=== PATIENT | male | born 1950 | race Caucasian/White ===

== ENCOUNTER 2022-07-17 10:03 | Inpatient (IN) | payer MEDICARE ==
[2022-07-11 13:59] LABS: BASOPHILS # (AUTO) 0.1 (0.0-0.1); BASOPHILS % 1.2 % (0.0-1.0); EOSINOPHILS # (AUTO) 0.2 (0.0-0.4); EOSINOPHILS % 3.2 % (0.0-6.0); HEMOGLOBIN 15.8 g/dL (14.0-18.0); LYMPHOCYTES # (AUTO) 1.3 (1.0-3.2); LYMPHOCYTES % 17.6 % (18.0-39.1); MEAN CORPUSCULAR HEMOGLOBIN 31.3 pg (28-32); MEAN CORPUSCULAR HGB CONC 32.2 g/dL (31-35); MONOCYTES % 13.9 % (4.4-11.3); NEUTROPHILS # (AUTO) 4.6 (2.1-6.9); NEUTROPHILS % 63.3 % (38.7-80.0); PLATELET COUNT 218 x10e3/uL (140-360); RED BLOOD COUNT 5.05 x10e6/uL (4.3-5.7); RED CELL DISTRIBUTION WIDTH 12.6 % (11.7-14.4)
[2022-07-11 14:17] LABS: ANION GAP 11.6 mmol/L (8-16); CALCIUM 9.5 mg/dL (8.4-10.2); CREATININE, SERUM 1.4 mg/dL (0.72-1.25); POTASSIUM 3.6 mmol/L (3.5-5.1)
[~2022-07-17] VITALS: Ht 190.5 cm; Wt 101.2 kg
[~2022-07-17 10:03] MED LIST: AMLODIPINE BESYL5 MG PO; FLOMAX0.4 MG PO; LISINOPRIL-HCT1 EAC1 PO; METHIMAZOLE10 MG PO
[2022-07-17] MEDS ORDERED: CLINDAMYCIN 600MG / 50ML 50 ML IV ONE (10:42)
[2022-07-17] MEDS ORDERED: GENTAMICIN 80MG/NS 100 ML 200 ML IV ONE (10:42)
[2022-07-17] MEDS ORDERED: PIPERACILLIN/TAZOBACTAM 3.375 GM VIAL ONE (10:43)
[2022-07-17] MEDS ORDERED: BACITRACIN ZINC 15 GM OINT ONE (11:59)
[2022-07-17] MEDS ORDERED: GENTAMICIN SULFATE 40 MG/ML 2 ML VIAL ONE ×2 (11:59→13:10)
[2022-07-17] MEDS ORDERED: Vancomycin IV 500 MG ONE ×2 (12:00→13:10)
[2022-07-17] MEDS ORDERED: SEVOFLURANE INHAL SOLN 250 ML PEN BTL ONE (13:11)
[2022-07-17] MEDS ORDERED: EPHEDRINE SULFATE INJ 50 MG/ML VIAL ONE (13:11)
[2022-07-17] MEDS ORDERED: ONDANSETRON HCL INJ 2MG/ML 2ML 2 MG/ML VIAL ONE (13:11)
[2022-07-17] MEDS ORDERED: PROPOFOL IV EMULSION 10 MG/ML 20 ML VIAL ONE (13:11)
[2022-07-17] MEDS ORDERED: PHENYLEPHRINE HCL 1% 10 MG/ML VIAL ONE (13:11)
[2022-07-17] MEDS ORDERED: LIDOCAINE HCL 2% LOCAL INJ 5 ML SDV VIAL INJ ONE (13:11)
[2022-07-17] MEDS ORDERED: POVIDONE IODINE 0.05% 0.05 % ML PO ONE (13:11)
[2022-07-17] MEDS ORDERED: DEXAMETHASONE SOD PHOS INJ 4 MG/ML SDV ONE (13:11)
[2022-07-17] MEDS ORDERED: TRAMADOL HCL 50 MG TAB PO PRN (13:15)
[2022-07-17] MEDS ORDERED: SODIUM CHLORIDE 0.9% 1000ML 1,000 ML IV SCH (13:15)
[2022-07-17] MEDS ORDERED: ONDANSETRON HCL INJ 2MG/ML 2ML 2 MG/ML VIAL IV PRN (13:15)
[2022-07-17] MEDS ORDERED: DIPHENHYDRAMINE HCL 25 MG CAP PO PRN (13:15)
[2022-07-17] MEDS ORDERED: FENTANYL CITRATE/PF 100MCG/2 ML INJ ONE ×2 (13:32→15:30)
[2022-07-17] MEDS ORDERED: MIDAZOLAM HCL 2 MG/2 ML VIAL ONE (13:32)
[2022-07-17 15:51] VITALS: BP 100/67
[2022-07-17 16:35] VITALS: BP 106/51
[2022-07-17] MEDS: DOCUSATE SODIUM 100 MG CAP PO SCH (17:25)
[2022-07-17] MEDS ORDERED: ACETAMINOPHEN 1000 MG/100 ML IV PRN (18:00)
[2022-07-17] MEDS: Clindamycin INJ 300 MG/50 ML 50 ML IV SCH (19:49)
[2022-07-17 20:00] VITALS: BP 115/73
[2022-07-17] MEDS: HYDROCODONE/APAP 10MG-325MG TAB PO PRN (20:03)
[2022-07-17 21:00] VITALS: BP 115/73
[2022-07-18] VITALS (7 sets, daily range): BP systolic 105–126; BP diastolic 66–83
[2022-07-18] MEDS: HYDROCODONE/APAP 10MG-325MG TAB PO PRN ×4 (01:06→17:10)
[2022-07-18] MEDS: Clindamycin INJ 300 MG/50 ML 50 ML IV SCH ×3 (04:57→20:01)
[2022-07-18 05:21] LABS: BASOPHILS % 0.2 % (0.0-1.0); EOSINOPHILS % 0.1 % (0.0-6.0); HEMATOCRIT 42.7 % (38.2-49.6); HEMOGLOBIN 14.7 g/dL (14.0-18.0); LYMPHOCYTES # (AUTO) 0.9 (1.0-3.2); LYMPHOCYTES % 5.4 % (18.0-39.1); MEAN CORPUSCULAR HEMOGLOBIN 31.4 pg (28-32); MEAN CORPUSCULAR HGB CONC 34.4 g/dL (31-35); MEAN CORPUSCULAR VOLUME 91.2 fL (81-99); MONOCYTES # (AUTO) 1.6 (0.2-0.8); MONOCYTES % 9.9 % (4.4-11.3); NEUTROPHILS # (AUTO) 13.7 (2.1-6.9); NEUTROPHILS % 83.7 % (38.7-80.0); PLATELET COUNT 225 x10e3/uL (140-360); RED BLOOD COUNT 4.68 x10e6/uL (4.3-5.7); RED CELL DISTRIBUTION WIDTH 12.6 % (11.7-14.4)
[2022-07-18 05:50] LABS: ANION GAP 14.7 mmol/L (8-16); CALCIUM 8.8 mg/dL (8.4-10.2); CREATININE, SERUM 1.43 mg/dL (0.72-1.25); POTASSIUM 3.7 mmol/L (3.5-5.1)
[2022-07-18] MEDS: SODIUM CHLORIDE 0.9% 1000ML 1,000 ML IV SCH ×2 (06:25→20:01)
[2022-07-18] MEDS ORDERED: ONDANSETRON HCL 4 MG ORAL DISINTEGRATING TAB PO PRN (07:15)
[2022-07-18] MEDS: DOCUSATE SODIUM 100 MG CAP PO SCH ×2 (08:54→16:57)
[2022-07-18] MEDS ORDERED: TAMSULOSIN HCL 0.4 MG CAP PO SCH ×3 (09:00→21:00)
[2022-07-18] MEDS: METHIMAZOLE 5 MG TAB PO SCH ×2 (09:01→16:57)
[2022-07-18] MEDS: AMLODIPINE BESYLATE 5 MG TAB PO SCH (09:02)
[2022-07-19] VITALS: BP 119/72
[2022-07-19 04:00] VITALS: BP 131/69
[2022-07-19] MEDS: Clindamycin INJ 300 MG/50 ML 50 ML IV SCH ×2 (04:48→13:00)
[2022-07-19 05:03] LABS: BASOPHILS # (AUTO) 0.1 (0.0-0.1); BASOPHILS % 0.7 % (0.0-1.0); EOSINOPHILS # (AUTO) 0.1 (0.0-0.4); EOSINOPHILS % 1.5 % (0.0-6.0); HEMATOCRIT 42.8 % (38.2-49.6); HEMOGLOBIN 14.6 g/dL (14.0-18.0); LYMPHOCYTES # (AUTO) 0.8 (1.0-3.2); LYMPHOCYTES % 8.8 % (18.0-39.1); MEAN CORPUSCULAR HEMOGLOBIN 31.8 pg (28-32); MEAN CORPUSCULAR HGB CONC 34.1 g/dL (31-35); MEAN CORPUSCULAR VOLUME 93.2 fL (81-99); MONOCYTES # (AUTO) 1.2 (0.2-0.8); MONOCYTES % 13.6 % (4.4-11.3); NEUTROPHILS # (AUTO) 6.5 (2.1-6.9); NEUTROPHILS % 74.5 % (38.7-80.0); PLATELET COUNT 178 x10e3/uL (140-360); RED BLOOD COUNT 4.59 x10e6/uL (4.3-5.7); RED CELL DISTRIBUTION WIDTH 13.1 % (11.7-14.4)
[2022-07-19 05:32] LABS: ANION GAP 12.1 mmol/L (8-16); CALCIUM 9.1 mg/dL (8.4-10.2); CREATININE, SERUM 1.34 mg/dL (0.72-1.25); POTASSIUM 4.1 mmol/L (3.5-5.1)
[2022-07-19 08:19] VITALS: BP 114/70
[2022-07-19 09:00] VITALS: BP 114/70
[2022-07-19] MEDS: DOCUSATE SODIUM 100 MG CAP PO SCH (09:00)
[2022-07-19] MEDS: AMLODIPINE BESYLATE 5 MG TAB PO SCH (11:18)
[2022-07-19] MEDS: METHIMAZOLE 5 MG TAB PO SCH (11:18)
[2022-07-19] MEDS: SODIUM CHLORIDE 0.9% 1000ML 1,000 ML IV SCH (11:19)
[2022-07-19] MEDS: HYDROCODONE/APAP 10MG-325MG TAB PO PRN (11:21)
[2022-07-19 12:56] VITALS: BP 131/77
[2022-07-19] MEDS ORDERED: CLINDAMYCIN HCL 150 MG CAP PO SCH (13:30)
== END 2022-07-19 13:20 | disposition home or self-care (01) | DRG 710 ==
LOC: OR 10:03 → PACU V 13:33 → MED/SURG 15:40
PROVIDERS: ADMIT Internal Medicine; ATTEND Internal Medicine
PROC: 0VUS0JZ Supplement Penis with Synthetic Substitute, Open Approach (ICD-10-PCS; principal; 2022-07-17 12:30)
DX: N52.9 Male erectile dysfunction, unspecified (principal); E11.9 Type 2 diabetes mellitus without complications; E05.90 Thyrotoxicosis, unspecified without thyrotoxic crisis or storm; E11.22 Type 2 diabetes mellitus with diabetic chronic kidney disease; I12.9 Hypertensive chronic kidney disease with stage 1 through stage 4 chronic kidney disease, or unspecified chronic kidney disease; N18.9 Chronic kidney disease, unspecified; E66.09 Other obesity due to excess calories; Z68.27 Body mass index [BMI] 27.0-27.9, adult; Z20.822 Contact with and (suspected) exposure to COVID-19
CPT/HCPCS: 0223U; 36415; 71046; 80048; 85025; 93005; 94799; C1776; C1813; J1100; J1580; J2001; J2250; J2370; J2405; J2543; J3010; J3370; J7030